=== PATIENT | male | born 1980 | race Caucasian/White ===

== ENCOUNTER 2017-08-14 23:10 | Emergency (ER) | payer OTHER ==
[~2017-08-14] VITALS: Ht 177.8 cm; Wt 81.6 kg
[2017-08-15 00:08] LABS: HEMATOCRIT 41.4 % (38.0-50.0); MCH 29.3 PG (29.0-34.0); MCHC 32.9 G/DL (30.0-36.0); MCV 89.2 FL (86-99); MEAN PLAT.VOLUME 10.1 uM^3 (9.0-12.4); PLATELET COUNT 232 K/uL (156-360); RBC DIS.WIDTH-CV 13.2 % (11.8-14.6); RBC DIS.WIDTH-SD 43.3 % (39-53); RED BLOOD COUNT 4.64 M/uL (4.00-5.50); WHITE BLOOD COUNT 7.5 K/uL (4.1-10.2)
[2017-08-15 00:15] LABS: CHLORIDE 104 mEq/L (99-109); POTASSIUM 3.7 mEq/L (3.7-5.4); SODIUM 137 mEq/L (136-147)
[2017-08-15 00:16] LABS: GLUCOSE 98 mg/dL (70-99)
[2017-08-15 00:18] LABS: ANION GAP 9 MEQ/L (2-14)
[2017-08-15 00:20] LABS: GFR ESTIMATE (CALCULATED) > 59 mL/min/
[2017-08-15 00:21] LABS: UREA NITROGEN (BUN) 9 mg/dL (9-23)
[2017-08-15] MEDS ORDERED: DOXYCYCLINE HY100 MG PO (00:51)
[2017-08-15] MEDS ORDERED: PREDNISONE20 MG PO (00:51)
[2017-08-15 01:04] VITALS: BP 172/122
== END 2017-08-15 01:05 | disposition home or self-care (01) ==
LOC: EME 23:10
DX: J40 Bronchitis, not specified as acute or chronic (principal); F17.200 Nicotine dependence, unspecified, uncomplicated; I10 Essential (primary) hypertension
CPT/HCPCS: 71020; 80048; 85027; 99281; 99283; J7512